=== PATIENT | female | born 1955 | race Caucasian/White ===

== ENCOUNTER 2016-12-08 07:52 | Day surgery (SDC) | payer OTHER ==
--- NOTE | ~2016-12-08 | EGD ---
EGD REPORT [facility] [address] [place]. [address] NAME: GRETCHEN CASEY : [birth year] STATUS : REG [facility] PAT#: [id number] AGE: 61 ADM/REG DATE : 12/08/16 MR#: [id number] REPORT SERV DATE: 12/08/16 DICTATED BY: DATE: REPORT STATUS : Draft TRANSCRIBED BY: [facility] DATE: 12/08/16 Endoscopy Center Patient Name: Gretchen Casey Date of : 1955 Attending MD: JOSE LARKIN MD Procedure Date No Time: 12/08/2016 Procedure: Colonoscopy Indications: Screening for colorectal malignant neoplasm Referring MD: MARY CORTES MD Medicines: as per anesthesia Complications: No immediate complications. Procedure: Pre-Anesthesia Assessment: - ASA Grade Assessment: II - A patient with mild systemic disease. After I obtained informed consent, the scope was passed under direct vision. Throughout the procedure, the patient's blood pressure, pulse, and oxygen saturations were monitored continuously. The PCF [id number] was introduced through the anus and advanced to the cecum, identified by appendiceal orifice and ileocecal valve. The colonoscopy was performed without difficulty. The patient tolerated the procedure well. The quality of the bowel preparation was adequate to identify polyps. Findings: The perianal and digital rectal examinations were normal. A few medium-mouthed diverticula were found in the sigmoid colon. Internal hemorrhoids were found during endoscopy and were mild. Impression: - Diverticulosis in the sigmoid colon. - Internal hemorrhoids. Recommendation: - Repeat colonoscopy in 10 years for surveillance. Procedure Code(s): --- Professional --- 45517, Colonoscopy, flexible, proximal to splenic flexure; diagnostic, with or without collection of specimen(s) by brushing or washing, with or without colon decompression (separate procedure) Diagnosis Code(s): --- Professional --- K64.8, Other hemorrhoids K57.30, Diverticulosis of large intestine without perforation or abscess without bleeding Z12.11, Encounter for screening for malignant neoplasm EGD REPORT [facility] [address] [facility] [facility] [place] [address] NAME: GRETCHEN CASEY Wil[place] : [birth year] STATUS : REG [facility] PAT#: [id number] AGE: 61 ADM/REG DATE : 12/08/16 MR#: [id number] REPORT SERV DATE: 12/08/16 DICTATED BY: DATE: REPORT STATUS : Draft TRANSCRIBED BY: [employer] DATE: 12/08/16 of colon CPT copyright 2013 [employer]. All rights reserved. The codes documented in this report are preliminary and upon tuberculosis specialist review may be revised to meet current compliance requirements. JOSE LARKIN MD 12/08/2016 11:01 AM This report has been signed electronically. Number of Addenda: 0 Note Initiated On: 12/08/2016 10:28 AM Scope Withdrawal Time 0 hours 9 minutes 39 seconds [id number] [place] [address]
[~2016-12-08 07:52] MED LIST: FISH-EPA1000 MG PO; LEVOTHYROXIN25 MCG PO; MINIVELLE1 EAC1 TOP; MULTIPLE VIT PO; SYN.05 PO
== END 2016-12-08 23:59 | disposition home or self-care (01) ==
LOC: DMU 07:52
PROVIDERS: Internal Medicine Gastroenterology
PROC: 0DJD8ZZ Inspection of Lower Intestinal Tract, Via Natural or Artificial Opening Endoscopic (ICD-10-PCS; principal; 2016-12-08 09:30)
DX: Z12.11 Encounter for screening for malignant neoplasm of colon (principal); K64.8 Other hemorrhoids; K57.30 Diverticulosis of large intestine without perforation or abscess without bleeding; E03.9 Hypothyroidism, unspecified; H40.9 Unspecified glaucoma; E78.00 Pure hypercholesterolemia, unspecified; Z90.49 Acquired absence of other specified parts of digestive tract; Z90.710 Acquired absence of both cervix and uterus; Z98.51 Tubal ligation status; Z98.890 Other specified postprocedural states; Z79.899 Other long term (current) drug therapy